=== PATIENT | male | born 1970 | race Caucasian/White ===

== ENCOUNTER 2019-03-18 19:07 | Observation (INO) | payer OTHER ==
[2019-03-18] MEDS ORDERED: fentaNYL 100 MCG/2 ML INJ ONE (19:11)
[2019-03-18] MEDS ORDERED: fentaNYL 100 MCG/2 ML INJ IVP ONE (19:17)
[2019-03-18] MEDS ORDERED: ONDANSETRON 4 MG/2 ML VIAL IVP ONE (19:17)
[2019-03-18] MEDS ORDERED: NS 500 ML IV ONE (19:22)
[2019-03-18] MEDS ORDERED: ceFAZolin 2 GM/DEXTROSE 100 ML IV ONE (19:22)
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
[2019-03-18 19:35] LABS: PLATELET COUNT 266 10^3/uL (150-400)
[2019-03-18 19:43] LABS: INR 1.02 (0.83-1.16)
[2019-03-18] MEDS ORDERED: ACETAMINOPHEN 500 MG TAB PO ONE (20:51)
[2019-03-18] MEDS ORDERED: KETOROLAC 30 MG/1 ML SDV IVP ONE (20:56)
[2019-03-18] MEDS ORDERED: KETOROLAC 30 MG/1 ML SDV ONE (20:58)
[2019-03-18] MEDS ORDERED: LORazepam 2 MG/ML INJ IVP ONE (21:05)
[2019-03-18] MEDS ORDERED: LORazepam 2 MG/ML INJ ONE (21:07)
[2019-03-18] MEDS ORDERED: ONDANSETRON 4 MG/2 ML VIAL IVP PRN (22:46)
[2019-03-18] MEDS ORDERED: HYDROmorphONE/DILAUDID 1 MG/ML INJ IVP PRN (22:46)
[2019-03-18] MEDS ORDERED: LORazepam 1 MG TAB PO PRN (22:47)
[2019-03-18] MEDS ORDERED: D5W 1/2 NS W/ 20 KCl/L 1,000 ML IV SCH (23:00)
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
[2019-03-19] MEDS: KETOROLAC 15 MG/1 ML SDV IVP SCH ×3 (00:02→13:13)
[2019-03-19] MEDS: OXYCODONE/APAP 5/325 TAB PO PRN ×4 (00:12→16:34)
[2019-03-19 05:14] LABS: PLATELET COUNT 207 10^3/uL (150-400)
[2019-03-19] MEDS ORDERED: POLYETHYLENE GLYCOL 3350 17 GM PKT PO PRN (09:59)
[2019-03-19] MEDS ORDERED: BISACODYL 10 MG SUPP PR PRN (09:59)
[2019-03-19] MEDS ORDERED: MAGNESIUM HYDROXIDE 30 ML UDCUP PO PRN (09:59)
[2019-03-19] MEDS ORDERED: LACTULOSE 20 GM/30 ML UDCUP PO PRN (09:59)
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
[2019-03-19 11:43] VITALS: BP 117/68
--- NOTE | 2019-03-19 11:53 | ASMTLACE ---
[place] Length of stay for Answers: 1 day current admission Acuity / Level of Answers: No Care: Did the patient have an inpatient admission? # of Emergency department Answers: 1-2 visits in the last 6 months Score: 2 Date Signed: 03/19/2019 11:52 AM Electronically Signed By:Edith Melissa RN
--- NOTE | 2019-03-19 11:54 | ASMTDCNOTE ---
Case Management Discharge Discharge Order Complete? Answers: Yes Patient to Obtain Answers: Independently Medications Transportation Arranged Answers: Family/Friends Family Notified Answers: Yes Discharge Comments Notes: Patient discharged home with girlfriend. He will f/u w surgery in 10-14 days. No d/c needs per surgery and as discussed with patient. Date Signed: 03/19/2019 11:53 AM Electronically Signed By:Edith Melissa RN
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
[2019-03-19] MEDS ORDERED: SENNOSIDES/DOCUSATE SODIUM TAB PO SCH (21:00)
== END 2019-03-19 17:04 | disposition home or self-care (01) ==
LOC: EDUNIT# → F3N 22:16
PROVIDERS: ADMIT Surgery; ATTEND Surgery
PROC: 0HQMXZZ Repair Right Foot Skin, External Approach (ICD-10-PCS; principal; 2019-03-18)
DX: S91.311A Laceration without foreign body, right foot, initial encounter (principal); S20.219A Contusion of unspecified front wall of thorax, initial encounter; S80.212A Abrasion, left knee, initial encounter; S80.811A Abrasion, right lower leg, initial encounter; S50.12XA Contusion of left forearm, initial encounter; S60.511A Abrasion of right hand, initial encounter; W26.9XXA Contact with unspecified sharp object(s), initial encounter; V43.52XA Car driver injured in collision with other type car in traffic accident, initial encounter; W22.10XA Striking against or struck by unspecified automobile airbag, initial encounter; Y92.410 Unspecified street and highway as the place of occurrence of the external cause
CPT/HCPCS: 12044; 70450; 71045; 71260; 72125; 73130; 73630; 73650; 74177; 92523; 96365; 96375; 97116; 97161; 97165; 99285; G0378; G0480; J0690; J1885; J2060; J3010

== ENCOUNTER 2019-03-30 11:44 | Emergency (ER) | payer OTHER | END 2019-03-30 12:40 | disposition home or self-care (01) | LOC: CED 11:44 ==